=== PATIENT | male | born 1980 | race Caucasian/White ===

== ENCOUNTER 2016-08-30 | Emergency (ER) | payer OTHER ==
[~2016-08-30] MED LIST: NAPR500 PO
[2016-08-30 00:02] VITALS: BP 110/61; PULSE 64; RESP 16; TEMP 98; O2SAT 97
--- NOTE | 2016-08-30 00:39 | PD ---
HPI Chief Complaint: Musculoskeletal Complaint Time Seen by Provider: 00:28 Travel History International Travel<30 days: No Contact w/Intl Traveler<30days: No Traveled to known affect area: No History of Present Illness HPI This is a 28-year-old male who presents for evaluation of right knee pain. He reports over the past week he has been walking a lot more for work. He reports he walks about 5 miles a day. About 4 days ago he started to develop some pain in his right knee when he walks. Pain is an aching pain primarily in the lateral aspect that is worse when he is walking and seems to progress throughout the day, somewhat alleviated in the morning. He has been using over- the-counter NSAIDs but symptoms persisted which prompted evaluation. Denies any trauma. He reports that the increase in walking is new activity. No other complaints. History Past Medical Histgory Tetanus Vaccination: Unknown Social History Alcohol Use: No Tobacco Use: Yes Allergies-Medications (Allergen,Severity, Reaction): Coded Allergies: No Known Allergies (Verified , 08/30/16) Reported Meds & Prescriptions Reported Meds & Active Scripts Active No Active Prescriptions or Reported Medications Review of Systems Musculoskeletal: Positive: Pain, No: Limited ROM Skin: Positive Other (no bruising or soft tissue swelling) Physical Exam Narrative GENERAL: Well-developed well-nourished male in no acute distress SKIN: Warm and dry. HEAD: Atraumatic. Normocephalic. EYES: Pupils equal and round. No scleral icterus. No injection or drainage. ENT: No nasal bleeding or discharge. Mucous membranes pink and moist. NECK: Trachea midline. No JVD. CARDIOVASCULAR: Regular rate and rhythm. No murmur appreciated. RESPIRATORY: No accessory muscle use. Clear to auscultation. Breath sounds equal bilaterally. MUSCULOSKELETAL: No obvious deformities. No tenderness to palpation to the right knee joint. There is no obvious laxity on stress examination. There is no joint effusion. There is no erythema. Full spontaneous range of motion of the right knee is elicited. He does have some pain with range of motion particularly in the lateral aspect. NEUROLOGICAL: Awake and alert. No obvious cranial nerve deficits. Motor grossly within normal limits. Normal speech. Data Data Last Documented VS Vital Signs Date Time Temp Pulse Resp B/P Pulse Ox O2 Delivery O2 Flow Rate FiO2 08/30/16 00:17 16 08/30/16 00:02 98.0 64 110/61 97 [facility] Medical Screen Exam Complete: Yes Emergency Medical Condition: No Narrative Course 36-year-old male presents with right knee pain for 4 days. He reports over the past week he has been walking about 5 miles a day in order to find work. He denies any trauma. Examination is unremarkable. There is no evidence of a septic or inflammatory arthritis, no evidence of a DVT or arterial issue, no evidence of bony fracture. I suspect a overuse injury to the right knee secondary to the increase in walking. A medical screening exam was performed: At the time of evaluation the presenting medical condition was determined not to be of an emergent nature. The patient was given the option of receiving additional care, but declined. Patient was given options for additional community resources from which to obtain care. The Patient Has Been advised to seek medical attention for their presenting complaint. The patient has been advised to return to the ER at any time if an emergent condition develops. Primary Impression: Encounter for medical screening examination Med/Other Pt SpecificInfo: No Change to Meds Scripts No Active Prescriptions or Reported Meds Disposition: 01 DISCHARGE HOME Condition: Stable Dannie Newton Aug 30, 2016 00:39
== END 2016-08-30 05:43 | disposition left against medical advice (07) ==
LOC: NETRI
DX: M25.561 Pain in right knee (principal)
CPT/HCPCS: 99281